=== PATIENT | female | born 2000 | race Caucasian/White ===

== ENCOUNTER 2019-09-28 14:42 | Emergency (ER) | payer MEDICAID ==
[~2019-09-28] VITALS: Ht 165.1 cm; Wt 69.4 kg
[2019-09-28 15:53] VITALS: BP_SYST 112
[2019-09-28 16:06] VITALS: BP_SYST 118
== END 2019-09-28 16:06 | disposition home or self-care (01) ==
LOC: SED 14:42
DX: B86 Scabies (principal); R03.0 Elevated blood-pressure reading, without diagnosis of hypertension
CPT/HCPCS: 99283

== ENCOUNTER 2021-06-21 19:08 | Emergency (ER) | payer MEDICAID ==
[~2021-06-21] VITALS: Ht 160 cm; Wt 68.0 kg
[2021-06-21 19:16] VITALS: BP_SYST 125
[2021-06-21 21:19] VITALS: BP_SYST 112
== END 2021-06-21 21:19 | disposition home or self-care (01) ==
LOC: SED 19:08
DX: S91.202A Unspecified open wound of left great toe with damage to nail, initial encounter (principal); S00.03XA Contusion of scalp, initial encounter; S80.212A Abrasion, left knee, initial encounter; V87.8XXA Person injured in other specified noncollision transport accidents involving motor vehicle (traffic), initial encounter; Y93.89 Activity, other specified; Y92.89 Other specified places as the place of occurrence of the external cause; Y99.8 Other external cause status
CPT/HCPCS: 99283

== ENCOUNTER 2022-07-07 21:05 | Emergency (ER) | payer MEDICAID ==
[~2022-07-07] VITALS: Ht 160 cm; Wt 72.6 kg
[2022-07-07 21:12] VITALS: BP_SYST 111
--- NOTE | 2022-07-07 21:17 | NUR ---
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 NO PAIN, IRRITATION, SWELLING OR VISION CHANGES.
--- NOTE | 2022-07-07 21:50 | NUR ---
Patient to ER bed castillo to gown for evaluation. Side rails up.
--- NOTE | 2022-07-07 22:59 | NUR ---
PT C/O BILATERAL EYE REDNESS. 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 PT DENIES ANY VISUAL DEFICITS AT THIS TIME. VSS. NO SIGNS OF DISTRESS AT THIS TIME. MD AT BEDSIDE PERFORMING VISUAL ACUITY. NO DEFICITS NO SIGNS OF DISTRESS AT THIS TIME
[2022-07-08 00:33] VITALS: BP_SYST 112
== END 2022-07-08 00:30 | disposition home or self-care (01) ==
LOC: SED 21:05
DX: H11.003 Unspecified pterygium of eye, bilateral (principal); Z79.899 Other long term (current) drug therapy
CPT/HCPCS: 99281